=== PATIENT | male | born 1990 | race Two or more races ===

== ENCOUNTER 2024-03-20 20:11 | Emergency (ER) | payer OTHER, SELFPAY ==
[2024-03-20 20:15] VITALS: BP 132/82
--- NOTE | 2024-03-20 20:23 | ED.GENMED ---
ED Provider Triage
<Sole Bhakta PA-C - Last Filed: 03/20/24 20:24>
-
Patient seen by provider in Triage?: Seen in Triage
Attestation: A medical screening examination has been initiated by a qualified medical provider. Based on the assessment performed at this time, it has been determined that an emergent medical condition may exist and the patient has been informed
that further medical evaluation and possible additional diagnostic testing may be needed.
HPI: 34yoM here with a dry cough x 1 week. No fevers. No SOB. Using OTC medications without relief.
GENERAL: Alert , in no apparent distress
EYE: No visual abnormalities.
NECK: Trachea midline
ENT: No visible abnormalities.
LUNGS: No acute respiratory distress
NEUROLOGICAL: Alert and oriented
SKIN: Skin intact. No visible changes.
MUSCULOSKELETAL: Moving extremities normally
PSYCH: Normal and appropriate interaction.
This is a medical evaluation conducted in person to initiate diagnostic evaluation and provide initial therapeutics. Please see further documentation by the treating clinician.
COVID/flu swab and CXR ordered.
History of Present Illness
<Sole Bhakta PA-C - Last Filed: 03/20/24 20:24>
General
Chief Complaint: Cough
Time Seen by Provider: 03/20/24 22:23
<Dax Yusuf PA-C - Last Filed: 03/20/24 23:10>
General
Source: patient
History of Present Illness
History of Present Illness:
34-year-old male with no significant past medical history presents the emergency department for evaluation of a cough for the last 7 days, not responding to the counter medications. Patient states cough is relatively dry, no fevers, no chills, no
rigors. No known sick contacts. Patient currently visiting a friend and normally lives in [facility]. Denies any recent antibiotic use. Patient has no other symptoms presently.
Past History
<Dax Yusuf PA-C - Last Filed: 03/20/24 23:10>
Past History
ED Past Medical History: None
ED Past Surgical History: None
Social History
Tobacco: Non-smoker
Alcohol: None
Drug: None
Personal: Single
Living: with family
Review of Systems
<Dax Yusuf PA-C - Last Filed: 03/20/24 23:10>
Review of Systems
All Other Systems: ROS reviewed and negative except as documented in HPI and ROS
Phy Exam
<Dax Yusuf PA-C - Last Filed: 03/20/24 23:10>
Physical Exam
Physical Exam:
GENERAL: Alert , in no apparent distress, frequent nonproductive cough noted
EYE: conjunctiva clear
NECK: Supple,\\\\
ENT: o/p clr, mmm.
CARDIAC: Regular rate and rhythm
LUNGS: Clear breath sounds bilaterally, no acute respiratory distress, no wheezes/rales/rhonchi
NEUROLOGICAL: Alert and oriented
SKIN: Warm and dry, skin intact.
MUSCULOSKELETAL: well perfused.
PSYCH: Normal and appropriate interaction.
Scores
<Dxa Yusuf PA-C - Last Filed: 03/20/24 23:10>
Heart Failure Risk
Heart Failure Risk Score: Not Applicable
Heart Score for Chest Pain Patients
STEMI patient?: Not applicable
Withdrawal Assessment of Alcohol
Withdrawal Assessment Completed?: Not applicable
Course
<Sole Bhakta PA-C - Last Filed: 03/20/24 20:24>
Orders/Labs/Results
Orders:
Orders
03/20/24 20:21
CR Chest - 2 Views Urgent
Comment:
Reason For Exam: Cough
03/20/24 20:25
COVID-19 Antigen Urgent
Source: Nasal Swab
Influenza A+B Rapid Molecular Urgent
ELLA Source: Nasal Swab
Specimen Description:
03/20/24 22:43
Amoxicillin 875 mg/Clav 125 mg [Augmentin 875 mg/125 mg] 1 tablet PO NOW STA
Vital Signs
Initial and Last Documented VS:
Initial Vital Signs
Temp Pulse Resp BP Pulse Ox
98.2 F 80 16 132/82 100
03/20/24 20:15 03/20/24 20:15 03/20/24 20:15 03/20/24 20:15 03/20/24 20:15
Last Documented Vital Signs
Temp Pulse Resp BP Pulse Ox
98.2 F 79 18 121/80 97
03/20/24 20:15 03/20/24 22:59 03/20/24 22:59 03/20/24 22:59 03/20/24 22:59
<Dax Yusuf PA-C - Last Filed: 03/20/24 23:10>
Orders/Labs/Results
Orders:
Orders
03/20/24 20:21
CR Chest - 2 Views Urgent
Comment:
Reason For Exam: Cough
03/20/24 20:25
COVID-19 Antigen Urgent
Source: Nasal Swab
Influenza A+B Rapid Molecular Urgent
ELLA Source: Nasal Swab
Specimen Description:
03/20/24 22:43
Amoxicillin 875 mg/Clav 125 mg [Augmentin 875 mg/125 mg] 1 tablet PO NOW STA
Vital Signs
Initial and Last Documented VS:
Initial Vital Signs
Temp Pulse Resp BP Pulse Ox
98.2 F 80 16 132/82 100
03/20/24 20:15 03/20/24 20:15 03/20/24 20:15 03/20/24 20:15 03/20/24 20:15
Last Documented Vital Signs
Temp Pulse Resp BP Pulse Ox
98.2 F 79 18 121/80 97
03/20/24 20:15 03/20/24 22:59 03/20/24 22:59 03/20/24 22:59 03/20/24 22:59
<Dax Yusuf PA-C - Last Filed: 03/20/24 23:10>
MDM/Problems Addressed
Differential Diagnosis Includes:
COVID, flu, other viral etiology, pneumonia
MDM/Problems Addressed:
34-year-old male presenting to the ER for evaluation of cough for the last week or so. Not responding to [id number] measures. Patient afebrile here, no acute respiratory distress. COVID and flu testing as well as chest x-ray were ordered
from triage. X-ray does appear to show a right-sided infiltrate consistent with pneumonia. Patient is immunocompetent, no hypoxia and is okay for outpatient management. Prescription for Augmentin sent to patient's pharmacy. He was provided with
a dose of the medication here. Patient requesting his antibiotic be sent to his pharmacy in [facility] and will have family pick this up and bring it to him here.
<Dax Yusuf PA-C - Last Filed: 03/20/24 23:10>
*Radiology
Radiology exam reviewed: preliminary read by ED provider (Right-sided pneumonia)
*Pulse Oximetry
Patient hypoxic: no
*Critical Care Note
Total Time (30-74mins, 75-104mins- exclusive of procedures): Not Applicable
ED Attending Note
<Sole Bhakta PA-C - Last Filed: 03/20/24 20:24>
-
Portions of this chart may have been created with voice recognition software.� Occasional wrong word or��sound alike� substitutions may have occurred due to the inherent limitations of voice recognition software.
Discharge Plan
Departure
Patient Disposition: Home (Routine Discharge)
Date of Disposition: 03/20/24
Time of Disposition: 22:40
Patient with high blood pressure during this ER visit?: No
Discharge Problem:
Pneumonia
Instructions: Pneumonia, Adult (DC)
Prescriptions:
New
amoxicillin-pot clavulanate 875-125 mg tablet
1 tab PO BID Qty: 19 0RF
Referrals:
UNKNOWN - PT DOES,NOT KNOW [Family Provider] -
Interventions
Interventions:
*Risk Screen - Suicide Last Done: 03/20/24 20:15
*General Assessment Last Done: 03/20/24 22:59
*Neglect/Abuse Screening Last Done: 03/20/24 20:15
*Nursing Disposition Last Done: 03/20/24 23:01
ED- Pulmonary Assessment Last Done: 03/20/24 20:39
Discharge Date and Time
Discharge Date/Time: 03/20/24 23:01
Print Language: INDONESIAN
[2024-03-20 20:53] LABS: COVID-19 Antigen Negative (Negative)
[2024-03-20] MEDS: AUGMENTIN 875 MG/125 MG 1 TABLET PO (22:55)
[2024-03-20 22:59] VITALS: BP 121/80
== END 2024-03-20 23:01 | disposition home or self-care (01) ==
LOC: EMR 20:11
PROVIDERS: Physician Assistant; EMERGENCY PHYSICIAN Emergency Medicine
DX: J18.9 Pneumonia, unspecified organism (principal); Z11.52 Encounter for screening for COVID-19
CPT/HCPCS: 99284; 71046; 87502; 87811